=== PATIENT | female | born 1940 | race Two or more races ===

== ENCOUNTER 2019-09-30 06:27 | Day surgery (SDC) | payer MEDICARE, MEDICAID ==
--- NOTE | 2019-09-29 13:11 | NUR ---
[employer] translation services used to obtained medical history with plating machine operator Adrian ID # [id number].
[2019-09-30] VITALS (10 sets, daily range): BP systolic 112–152; BP diastolic 61–79
[~2019-09-30] VITALS: Ht 165 cm; Wt 81.8 kg
[2019-09-30] MEDS ORDERED: SYNTHROID88 MCG ORAL (07:01)
[2019-09-30] MEDS ORDERED: CARDURA1 MG ORAL (07:01)
[2019-09-30] MEDS ORDERED: ZOCOR20 MG ORAL (07:01)
[2019-09-30] MEDS ORDERED: DIOVAN320 MG ORAL (07:01)
[2019-09-30] MEDS ORDERED: Dexamethasone 4mg/ml vial ONE (07:14)
[2019-09-30] MEDS ORDERED: Bupivacaine 0.5% Inj 30 ml vial INJ ONE (07:14)
[2019-09-30] MEDS ORDERED: Lidocaine 1% Plain 30 ml INJ ONE ×2 (07:15→07:24)
[2019-09-30] MEDS ORDERED: Propofol 200mg/20ml IV ONE (07:24)
[2019-09-30] MEDS ORDERED: LR 1000ml 1,000 ML IVLG SCH (07:26)
[2019-09-30] MEDS ORDERED: Flumazenil 0.1mg/ml 5ml Inj IV ONE (07:30)
[2019-09-30] MEDS ORDERED: LR 1000ml ONE (07:30)
[2019-09-30] MEDS ORDERED: HYDROcodone/Acetamin 7.5/325 tab ORAL PRN (07:30)
[2019-09-30] MEDS ORDERED: NS Irrig 1000ml ONE (07:30)
[2019-09-30] MEDS ORDERED: Ketorolac 30mg Inj IV PRN ×2 (07:30)
[2019-09-30] MEDS ORDERED: fentaNYL 100 mcg/2 mL IV PRN (07:30)
[2019-09-30] MEDS ORDERED: Atropine Sulfate 0.4mg/ml inj IVP PRN (07:30)
[2019-09-30] MEDS ORDERED: oxyCODONE HCL/Acetaminophen 5/325mg ORAL PRN (07:30)
[2019-09-30] MEDS ORDERED: Sterile Water Irrig 1000ml IRRIG ONE (07:30)
[2019-09-30] MEDS ORDERED: Labetalol 5mg/ml 20ml vial IV PRN (07:30)
[2019-09-30] MEDS ORDERED: DiphenhydrAMINE 50mg/ml Inj IVP PRN (07:30)
[2019-09-30] MEDS ORDERED: Metoclopramide 10mg/2ml Inj IVP PRN (07:30)
[2019-09-30] MEDS ORDERED: HYDROcodone/Acetamin 5/325 tab ORAL PRN (07:30)
[2019-09-30] MEDS ORDERED: LORazepam Inj 2mg/ml 1ml IV PRN (07:30)
[2019-09-30] MEDS ORDERED: Midazolam 2mg/2ml Inj IVP PRN (07:30)
[2019-09-30] MEDS ORDERED: Meperidine 25mg/0.5ml Inj (FOR RIGORS ONLY) IV PRN (07:30)
[2019-09-30] MEDS ORDERED: Hydromorphone 0.5mg/0.5ml inj IVP PRN (07:30)
--- NOTE | 2019-09-30 07:32 | Anethesia Preoperative Eval ---
Anesthesia Pre-op PMH/ROS General Date of Evaluation: Sep 30, 2019 Time of Evaluation: 07:24 Anesthesiologist: Ivon ASA Score: ASA 3 Mallampati Score Class I : Soft palate, uvula, fauces, pillars visible Class II: Soft palate, uvula, fauces visible Class III: Soft palate, base of uvula visible Class IV: Only hard plate visible Mallampati Classification: Class II Surgeon: Rosario Diagnosis: Hammertoe 3rd Left Digit Surgical Procedure: Hammertoe Correction 3rd Left Digit Anesthesia History: none Family History: no anesthesia problems Allergies: Coded Allergies: No Known Allergies (Unverified , 09/29/19) Medications: see eMAR Patient NPO?: Yes Past Medical History Cardiovascular: Reports: HTN, other - HL Endocrine: Reports: hypothyroidism Musculoskeletal/Integumentary: Reports: OA, other - Unsteady Gait Anesthesia Pre-op Phys. Exam Physician Exam Last Vital Signs Date Time Temp Pulse Resp B/P (MAP) Pulse Ox O2 Delivery O2 Flow Rate FiO2 09/30/19 07:09 Room Air 09/30/19 07:01 97.9 80 18 152/79 95 Constitutional: NAD Neurologic: CN 2-12 intact Cardiovascular: RRR Respiratory: CTA Gastrointestinal: S/NT/ND Airway Exam Mallampati Score: Class II MO: full ROM: limited Teeth: missing, intact Anesthesia Pre-op A/P Risk Assessment & Plan Assessment: ASA 3 Plan: GA, SED Status Change Before Surgery: No Pre-Antibiotics Dru Gram Ancef IV Given Within 1 Hr of Incision: Yes Time Given: 07:31 Breezy Del Valle MD Sep 30, 2019 07:32
[2019-09-30] MEDS ORDERED: Sodium Chloride 10ml vial INJ ONE (07:33)
--- NOTE | 2019-09-30 07:34 | Pre-Procedure Note/Attestation ---
Pre-Procedure Note/Attestation Complete Prior to Procedure Planned Procedure: left Procedure Narrative: Hammertoe correction third left digit Indications for Procedure Pre-Operative Diagnosis: Hammertoe deformity third left digit History of ulcer third left digit Attestation I attest that I discussed the nature of the procedure; its benefits; risks and complications; and alternatives (and the risks and benefits of such alternatives ), prior to the procedure, with the patient (or the patient's legal manufacturer representative). I attest that, if there was a reasonable possibility of needing a blood transfusion, the patient (or the patient's legal manufacturer representative) was given the [facility] standardized written summary, pursuant to the Rodri Juarez Blood Safety Act ([place] Health and Safety Code # 1645, as amended). I attest that I re-evaluated the patient just prior to the surgery and that there has been no change in the patient's H&P, except as documented below: Michael Ponce DPM Sep 30, 2019 07:34
--- NOTE | 2019-09-30 07:48 | Immediate Post-Op Evaluation ---
Immediate Post-Op Evalulation Immediate Post-Op Evalulation Procedure: Hammertoe Correction 3rd Left Digit Date of Evaluation: Sep 30, 2019 Time of Evaluation: 08:43 IV Fluids: 450 LR Blood Products: 0 Estimated Blood Loss: 4 Urinary Output: 0 Blood Pressure Systolic: 117 Blood Pressure Diastolic: 63 Pulse Rate: 63 Respiratory Rate: 16 O2 Sat by Pulse Oximetry: 100 Temperature (Fahrenheit): 97.7 Pain Score (1-10): 1 Nausea: No Vomiting: No Complications 0 Patient Status: awake, reacts, patent, none Hydration Status: adequate Dru Gram Ancef IV Given Within 1 Hr of Incision: Yes Time Given: 07:31 Breezy Del Valle MD Sep 30, 2019 07:48
--- NOTE | 2019-09-30 07:50 | 48 Hour Post Anesthesia Eval ---
Post Anesthesia Evaluation Procedure: Hammertoe Correction 3rd Left Digit Date of Evaluation: Sep 30, 2019 Time of Evaluation: 10:53 Blood Pressure Systolic: 153 0: 78 Pulse Rate: 67 Respiratory Rate: 18 Temperature (Fahrenheit): 98.2 O2 Sat by Pulse Oximetry: 99 Airway: patent Nausea: No Vomiting: No Pain Intensity: 1 Hydration Status: adequate Cardiopulmonary Status: Stable Mental Status/LOC: patient returned to baseline Follow-up Care/Observations: 0 Post-Anesthesia Complications: 0 Follow-up care needed: ready to discharge Breezy Del Valle MD Sep 30, 2019 07:49
--- NOTE | 2019-09-30 08:23 | Brief Operative Note ---
Immediate Post Operative Note Operative Note Pre-op Diagnosis: Hammertoe deformity third left digit History of ulcer third left digit Procedure: Arthroplasty third left PIPJ Exostectomy third left intermediate phalanx Post-op Diagnosis: same as pre-op Findings: consistent w/pre-op dx studies Surgeon: Rosario Anesthesiologist: James Anesthesia: MAC Specimen: yes Complications: none Condition: stable Fluids: 500 Estimated Blood Loss: none Drains: none Implant(s) used?: No Michael Ponce DPM Sep 30, 2019 08:23
--- NOTE | 2019-09-30 08:32 | NUR ---
LEFT THIRD DIGIT COLOR NOTED SLIGHTLY GRAYISH BUT WITH GOOD PERFUSION SKIN WARM AND DRY TO TOUCH. DR HILL HERE TO SEE AND EVALUATE STATES " ITS GOOD AND OK". WILL CONTINUE TO CHECK AND NOTE.
--- NOTE | 2019-09-30 09:30 | NUR ---
DR HILL HERE AGAIN TO CHECK ON LEFT THIRD DIGIT TOE . COLOR REMAINS SL GRAYISH WITH GOOD PERFUSION . STATES " ITS GOOD , IM OK WITH IT " . SKIN WARM AND DRY TO TOUCH NO C/O PAIN
--- NOTE | 2019-09-30 10:14 | Diagnostic Imaging Report ---
Indication: Postoperative, status post surgery for foot pain Technique: 3 views left foot Comparison: none Findings: Patient is status post osteotomy of the head of the third proximal phalanx. There is considerable deformity of the head of the third minute tarsal. There are mild degenerative changes and bunion formation of the first metatarsophalangeal joint. Impression: Postsurgical changes, as described
--- NOTE | 2019-09-30 10:40 | NUR ---
Thied left toe noted to be dusky in color but with good capillary filing when checked. Continue to elevated LLE with pillows when sitting up in wheelchair. Patient was assisted to the bathroom and ambulated with steady gait with post op shoe in place.
--- NOTE | 2019-09-30 17:15 | Operative Note - Dictated ---
DATE OF OPERATION: 09/30/2019 SURGEON: Michael Ponce D.P.M. ANESTHESIOLOGIST: Dr. Del Valle. ANESTHESIA: Local standby. PREOPERATIVE DIAGNOSES: 1. Hammertoe deformity third left digit. 2. History of an ulcer third digit. 3. Painful exostosis third left digit. POSTOPERATIVE DIAGNOSES: 1. Hammertoe deformity third left digit. 2. History of an ulcer third digit. 3. Painful exostosis third left digit. PROCEDURES PERFORMED: 1. Arthroplasty third left proximal interphalangeal joint. 2. Exostectomy third left intermediate phalanx. DESCRIPTION OF THE OPERATION: The patient was brought to the operating room and was placed on the operating room table in the supine position. IV sedation was administered by the anesthesiologist. Local anesthesia consisting of 50:50 mix of 1% Xylocaine plain and 0.5% Marcaine plain total of 8 mL was administered to the third left digit. An ankle tourniquet was applied to the left lower extremity. The foot was prepped and draped in the usual sterile manner. An Esmarch bandage was then utilized to exsanguinate the blood and the left ankle tourniquet was inflated to 250 millimeters of mercury. Attention was then directed to the dorsal aspect of the third left digit. Approximately, 4 to 5 centimeter dorsal linear skin incision was performed centered over the proximal interphalangeal joint. The incision was deepened utilizing sharp and blunt dissection with care being taken to cauterize and ligate all bleeders. At the level of the proximal interphalangeal joint, the extensor tenotomy was performed. The extensor tendon was reflected proximally. At this point, the head of the proximal phalanx was exposed and appeared to be fused with arthritic changes to the proximal aspect of the intermediate phalanx. The collateral ligaments were then freed. The head of the proximal phalanx was resected in total. The remaining bone was rasped smooth. The wound was copiously flushed. Attention was then directed to the lateral aspect of the base of the intermediate phalanx, which appeared to be exuberant. Utilizing a bone cutter, the exuberant bone was resected in total. The wound was copiously flushed utilizing sterile saline. The extensor tendon was then reapproximated utilizing 4-0 Vicryl in a simple interrupted type stitch. The skin was then reapproximated utilizing 4-0 nylon in a simple interrupted type stitch. The wound was dressed utilizing an Adaptic, 2 x 2 gauze, and 3 inch Brianna. Left ankle tourniquet was deflated and vascular supply was noted to all digits left foot. The patient tolerated the procedure well and left the operating room to recovery room with all vital signs stable. Michael Ponce D.P.M. DR: JAYLON JOB#: [id number] CC:
--- NOTE | 2019-09-30 17:15 | History and Physical Report ---
DATE OF ADMISSION: 09/30/2019 PODIATRIC HISTORY AND PHYSICAL HISTORY OF PRESENT ILLNESS: This is a 79-year-old white female who was admitted today for an outpatient correction of her painful third, left digit. The patient has been under my care for an ulceration of her third left digit during the past few months. The ulcer was treated conservatively and healed and the patient was consulted on hammertoe correction of her third left digit in order to prevent recurrence of the ulceration. PAST MEDICAL HISTORY: Remarkable for hypothyroidism and degenerative joint disease of the spine. MEDICATIONS: Acetaminophen, simvastatin, diclofenac gel, valsartan, Ventolin, captopril, levothyroxine. ALLERGIES: None. PODIATRIC PHYSICAL EXAMINATION: VASCULAR STUDIES: The dorsalis pedis and posterior tibial arteries are equally palpable measuring 1/4 bilaterally. The capillary filling time is less than 5 seconds to all digits bilaterally. Homans sign is negative. Varicosities are noted bilateral lower extremities. NEUROLOGICAL: Reveals intact reflexes Achilles and patellar measuring 2/4 bilaterally. Sensation, proprioception, and vibrations are all intact bilateral lower extremity. Babinski is negative. Clonus is absent bilaterally. MUSCULOSKELETAL: Reveals nonreducible hammertoe deformity of the third left digit. There is an exuberant bone palpated over the lateral aspect of the third left digit. Range of motion of the third left digits is reduced with very minimal motion at the level of the proximal interphalangeal joint and distal interphalangeal joint. The range of motion of the ankle subtalar joint and midtarsal joints bilaterally is reduced. No crepitation is noted. No pain on range of motion is noted bilaterally. Painful palpation of the third left digit is noted. There is also sensitivity over the medial aspect of the fourth left digit. DERMATOLOGICAL: Reveals a scab overlying healed ulcer over the lateral aspect of the third left digit. All nails are present and dystrophic bilaterally. No other skin lesions are present. ASSESSMENT: 1. Hammertoe deformity, third left digit. 2. History of an ulcer, third left digit. 3. Degenerative joint disease with exostosis over the third left digit. PLAN: The patient is admitted today for an outpatient correction of her hammertoe third left digit. Postoperative instructions were given. Pain medication was dispensed to the patient. The patient elected to proceed with surgery. Michael Ponce D.P.M. DR: Lore JOB#: [id number] CC:
== END 2019-09-30 10:40 | disposition home or self-care (01) ==
LOC: SUR 06:27
DX: M20.42 Other hammer toe(s) (acquired), left foot (principal); M89.9 Disorder of bone, unspecified; E03.9 Hypothyroidism, unspecified; Z79.899 Other long term (current) drug therapy; M19.90 Unspecified osteoarthritis, unspecified site; I10 Essential (primary) hypertension
CPT/HCPCS: 28039; 28285; 73630; J0690; J1100; J2001; J2250; J2405; J2704; J3490; J7120; 94003; 94150